=== PATIENT | female | born 1970 | race African-American/Black ===

== ENCOUNTER 2020-06-12 16:34 | Emergency (ER) | payer SELFPAY ==
[~2020-06-12] VITALS: Ht 172.7 cm; Wt 62.0 kg
[2020-06-12 16:58] VITALS: BP 104/56
== END 2020-06-12 18:54 | disposition left against medical advice (07) ==
LOC: ER 16:34
DX: R41.82 Altered mental status, unspecified (principal); F12.10 Cannabis abuse, uncomplicated; Z01.89 Encounter for other specified special examinations
CPT/HCPCS: 99283